=== PATIENT | female | born 1985 | race Two or more races ===

== ENCOUNTER 2025-05-08 12:59 | Emergency (ER) | payer OTHER ==
[~2025-05-08] VITALS: Ht 175.3 cm; Wt 74.3 kg
--- NOTE | 2025-05-08 13:13 | ED.PDOC ---
Musculoskeletal HPI Comments A 39 YEAR OLD FEMALE PRESENTS TO THE ED WITH COMPLAINT OF LEFT GREAT TOE PAIN. PATIENT STATES SHE WAS WALKING YESTERDAY AND SHE ACCIDENTALLY HIT HER LEFT GREAT TOE ON A CEMENT LEDGE. PATIENT REPORTS SHE IS NOW EXPERIENCING LEFT GREAT TOE PAIN WITH SWELLING. PATIENT WAS ABLE TO WALK AND BEAR WEIGHT WITH A STABLE GAIT. PATIENT DENIES FEVER, CHILLS, SHORTNESS OF BREATH, CHEST PAIN, ABDOMINAL PAIN, NAUSEA, VOMITING, HEADACHE, OR OTHER COMPLAINTS. NO OTHER SYMPTOMS OR MODIFYING FACTORS AT THIS TIME. PATIENT IS ALERT, ORIENTED X 4, AND HAS STEADY GAIT. Chief Complaint: Lower Extremity Time Seen by MD: 13:05 Reviewed Notes: Nurses Notes, Medications, Allergies Home Meds Active Scripts Ibuprofen (Ibuprofen) 800 Mg Tab, 1 TAB PO TID, #30 TAB Prov:CAMRON RENE 05/08/25 Information Source: Patient Mode of Arrival: Ambulatory Location: Left Extremity Location: Great Toe Timing: Days Prehospital treatment: None Severity: Moderate Able to Move Extremity: Yes Bear Weight: Fully Pain: Mild, Moderate Mechanism: Blunt Trauma Circumstances: Accident Onset of Symptoms: After Trauma Symptoms: Swelling, Pain DVT Risk Factors: NONE Last Tetanus: Unknown Associated signs and symptoms: None Past Medical History PAST MEDICAL HISTORY: Denies Surgical History: Denies all surgeries [employer]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 History Family History Family History: Reviewed,noncontributory to illness Social History Smoker: Non-Smoker Alcohol: Denies ETOH Use Drugs: Denies Drug Use Lives In: Home Constitutional: denies: chills, diaphoresis, fatigue, fever, malaise, sweats, weakness, others EENTM: denies: blurred vision, double vision, ear bleeding, ear discharge, ear drainage, ear pain, ear ringing, eye pain, eye redness, hearing loss, mouth pain, mouth swelling, nasal discharge, nose bleeding, nose congestion, nose pain, photophobia, tearing, throat pain, throat swelling, voice changes, others Respiratory: denies: cough, hemoptysis, orthopnea, SOB at rest, shortness of breath, SOB with excertion, stridor, wheezing, others Cardiovascular: denies: chest pain, dizzy spells, diaphoresis, Dyspnea on exertion, edema, irregular heart beat, left arm pain, lightheadedness, palpitations, PND, syncope, others Gastrointestinal: denies: abdomen distended, abdominal pain, blood streaked bowels, constipated, diarrhea, dysphagia, difficulty swallowing, hematemesis, melena, nausea, poor appetite, poor fluid intake, rectal bleeding, rectal pain, vomiting, others Genitourinary: denies: abnormal vagina bleeding, burning, dyspareunia, dysuria, flank pain, frequency, hematuria, incontinence, pain, , vagina discharge , urgency, others Neurological: denies: dizziness, fainting, headache, left sided numbness, left sided weakness, numbness, paresthesia, pre-existing deficit, right sided numbness, right sided weakness, seizure, speech problems, tingling, tremors, weakness, others Musculoskeletal: reports: joint pain, joint swelling, others (LEFT GREAT TOE PAIN AND SWELLING); denies: back pain, gout, muscle pain, muscle stiffness, neck pain Integumetry: reports: bruises (LEFT GREAT TOE ); denies: change in color, change in hair/nails, dryness, laceration, lesions, lumps, rash, wounds, others Allergic/Immunocompromised: denies: Difficulty Healing, Frequent Infections, Hives, Itching, others Hematologic/Lymphatic: denies: anemia, blood clots, easy bleeding, easy bruising, swollen glands, others Endocrine: denies: excessive hunger, excessive sweating, excessive thirst, excessive urination, flushing, intolerance to cold, intolerance to heat, un explained weight gain, unexplained weight loss, others Psychiatric: denies: anxiety, bipolar disorder, depression, hopeless, panic disorder, schizophrenia, sleepless, suicidal, others All Other Systems: Reviewed and Negative Physical Exam General Appearance: No Apparent Distress, Normal HEENT: Normal ENT Inspection, PERRL/EOMI, Pharynx Normal, TMs Normal Neck: Full Range of Motion, Non-Tender, Normal, Normal Inspection Respiratory: Chest Non-Tender, Lungs Clear, No Accessory Muscle Use, No R espiratory Distress, Normal Breath Sounds Cardiovascular: No Edema, No JVD, No Murmur, No Gallop, Normal Peripheral Pulses, Regular Rate/Rhythm Breast Exam: Deferred Gastrointestinal: No Organomegaly, Non Tender, No Pulsatile Mass, Normal Bowel Sounds, Soft Genitalia: Deferred Pelvic: Deferred Rectal: Deferred Extremities: No calf tenderness, Normal capillary refill, No pedal edema, Tender (AND MILD SWELLING AND CONTUSION ON LEFT GREAT TOE, NO BONY TENDERNESS AND DEFORMITY. ) Musculoskeletal : Apperance: Normal Neurologic: Alert, cone tender II-XII nml as Tested, No Motor Deficits, Normal Affect, Normal Mood, No Sensory Deficits Cerebellar Function: Normal Reflexes: Normal Skin: Bruises (LEFT GREAT TOE. ), Dry, Normal Color, Warm Peripheral Pulses: 2+ carotid (R), 2+ carotid (L), 2+ dorsalis pedis (R), 2+ dorsalis pedis (L) Lymphatic: No Adenopathy Was a procedure done? Was a procedure done?: No Differential Diagnosis EXT Differential Diagnosis: Fracture, Sprain, Dislocation, Contusion, Strain, Bursitis X-Ray, Labs, Meds, VS Vital Signs Date Time Temp Pulse Resp B/P (MAP) Pulse Ox O2 Delivery O2 Flow Rate FiO2 05/08/25 12:59 98.6 68 16 124/85 96 98.6 EXAM: XY L FOOT 3 VIEW XRAY CLINICAL INDICATION: INJURY TECHNIQUE: XY L FOOT 3 VIEW XRAY Comparison: None FINDINGS/IMPRESSION: There is no evidence of acute fracture or dislocation. The visualized joint space is well maintained. The alignment is anatomical. Radiopaque linear foreign body in the subcutaneous tissue measuring 4 mm along the plantar aspect of the foot inferior to the navicular bone. ATED BY: TONY MOHAMUD MD DICTATED DATE/TIME: 05/08/25 1354 SIGNED BY: TONY MOHAMUD MD SIGNED DATE/TIME: 05/08/25 1354 CC: X-Ray, Labs, Meds, VS Comment EXTERNAL MEDICAL RECORDS REVIEWED: [NONE] INDEPENDENT HISTORIANS: [NONE] SOCIAL DETERMINANTS OF HEALTH: [NONE] LABS ORDERED: NONE REVIEWED AND INTERPRETED RESULTS: NONE IMAGING ORDERED: XR FOOT LT TREATMENTS ORDERED: NONE PROCEDURES PERFORMED: NONE CRITICAL CARE TIME: NONE I HAVE DISCUSSED THE PATIENT WITH THE ATTENDING PHYSICIAN DR. LOPEZ AND HE AGREES WITH THE PATIENT'S PLAN OF CARE AND DISPOSITION. BASED ON HISTORY OF PRESENT ILLNESS, AND PHYSICAL EXAM, PATIENT WILL BE DISCHARGED HOME. DISCUSSED PLAN FOR DISCHARGE HOME WITH RX [IBUPROFEN 800MG]. MEDICATION WARNINGS GIVEN. SHARED DECISION MAKING: PATIENT INSTRUCTED TO FOLLOW UP WITH PRIMARY CARE PROVIDER IN 1-2 DAYS FOR RE-EVALUATION OF SYMPTOMS. PATIENT VERBALIZES UNDERSTANDING TO RETURN TO ED FOR NEW OR WORSENING SYMPTOMS OR IF FOLLOW UP WITH PCP CANNOT BE OBTAINED. PATIENT FEELS COMFORTABLE GOING HOME AT THIS TIME. ALL QUESTIONS ADDRESSED AT TIME OF DISCHARGE. Images Reviewed?: Images reviewed and evaluated by me Time of 1ST Reevaluation: 14:10 Reevaluation 1ST: Improved Patient Education/Counseling: Diagnosis, Treatment, Need For Follow Up Family Education/Counseling: Diagnosis, Treatment, Need For Follow Up Medical Screening: No EMC Exist At This Time Departure 1 Departure Time of Disposition: 14:10 Impression: Primary Impression: Sprain of left great toe Qualified Codes: S93.502A - Unspecified sprain of left great toe, initial encounter Disposition: HOME / SELF CARE / HOMELESS Condition: Stable Additional Instructions: FOLLOW-UP WITH PCP IN 1 TO 2 DAYS. TAKE MEDICATIONS PRESCRIBED. RETURN TO ED FOR ANY NEW OR WORSENING SYMPTOMS. e-Prescriptions Ibuprofen (Ibuprofen) 800 Mg Tab 1 TAB PO TID, #30 TAB Prov: CAMRON RENE 05/08/25 Discharged With: Self, Relative Critical Care Note Critical Care Time?: No Stability Stability form required: No I personally scribed for CAMRON RENE ([email or web address]) on 05/08/25 at 13:13. Electronically submitted by Donald Francisco ([email or web address]). I personally scribed for CAMRON RENE ([email or web address]) on 05/08/25 at 14:06. Electronically submitted by Donald Francisco ([email or web address]). CAMRON RENE May 08, 2025 13:13
--- NOTE | 2025-05-08 13:56 | DVH ---
EXAM: XY L FOOT 3 VIEW XRAY CLINICAL INDICATION: INJURY TECHNIQUE: XY L FOOT 3 VIEW XRAY Comparison: None FINDINGS/IMPRESSION: There is no evidence of acute fracture or dislocation. The visualized joint space is well maintained. The alignment is anatomical. Radiopaque linear foreign body in the subcutaneous tissue measuring 4 mm along the plantar aspect of the foot inferior to the navicular bone.
[2025-05-08] MEDS ORDERED: IBUP-1456 PO (14:09)
[2025-05-08 14:23] VITALS: BP 128/94; PULSE 68; RESP 16; TEMP 99; O2SAT 99
== END 2025-05-08 14:26 | disposition home or self-care (01) ==
LOC: ER 12:59
DX: S93.502A Unspecified sprain of left great toe, initial encounter (principal); Z79.1 Long term (current) use of non-steroidal anti-inflammatories (NSAID); W22.8XXA Striking against or struck by other objects, initial encounter; Y93.01 Activity, walking, marching and hiking; Y92.89 Other specified places as the place of occurrence of the external cause; Y99.0 Civilian activity done for income or pay
CPT/HCPCS: 73630